=== PATIENT | male | born 1960 | race African-American/Black ===

== ENCOUNTER 2020-06-09 16:54 | Emergency (ER) | payer OTHER ==
[~2020-06-09 16:54] MED LIST: FLEXERIL10 MG PO; KEFLEX250 MG PO; MOTRIN600 MG PO
[2020-06-09 17:41] LABS: BASOPHIL 0.5 % (0-2); EOSINOPHIL 0.2 % (0-5); HCT 45.9 % (42.0-52.0); HGB 14.7 g/dl (13.2-18.0); LYMPHOCYTE 18.3 % (15-48); MCH 28.7 pg (25.0-31.0); MCV 89.5 fL (78.0-100.0); MONOCYTE 10.8 % (0-12); MPV 9.4 fL (6.0-9.5); NRBC 0; PLT 174 K/uL (150-400); RBC 5.13 M/uL (4.70-6.00); WBC 4.2 K/uL (4.0-10.5)
[2020-06-09 17:59] LABS: ALBUMIN 3.5 g/dL (3.4-5.0); BILIRUBIN - TOTAL 0.2 mg/dL (0.2-1.0); BUN/CREAT RATIO (CALC) 12.9 RATIO; C-REACTIVE PROTEIN 0.5 mg/dL (<=0.90); CREATININE 0.93 mg/dL (0.67-1.17); GLOBULIN (CALCULATION) 3.8 g/dL; POTASSIUM 4.1 mmol/L (3.5-5.1); TOTAL PROTEIN 7.3 g/dL (6.4-8.2)
[2020-06-09] MEDS ORDERED: ONDANSETRON ODT4 MG PO (18:24)
== END 2020-06-09 18:50 | disposition home or self-care (01) ==
LOC: FER 16:54
PROVIDERS: Emergency Medicine
DX: U07.1 COVID-19 (principal); R03.0 Elevated blood-pressure reading, without diagnosis of hypertension
CPT/HCPCS: 36415; 71045; 80053; 84484; 85025; 85379; 86140; 93005; J1885; J2405